=== PATIENT | male | born 1985 | race Two or more races ===

== ENCOUNTER 2017-03-14 17:46 | Emergency (ER) | payer OTHER ==
[~2017-03-14] VITALS: Ht 167.6 cm; Wt 72.6 kg
[2017-03-14] MEDS ORDERED: Tetanus/Diptheria/Pertussis Vaccine 0.5ml Syr IM ONE (18:00)
[2017-03-14] MEDS ORDERED: Bacitracin Oint UD TOPIC ONE (18:00)
[2017-03-14] MEDS ORDERED: Lidocaine 1% Plain 30 ml INJ ONE (18:00)
--- NOTE | 2017-03-14 18:06 | Emergency Room Report ---
History of Present Illness General Chief Complaint: Laceration Source: Patient Present Illness HPI 32-year-old male presents to the emergency department complaining of laceration to the left index finger sustained at work from a sharp piece of metal. Patient states he does not know when his last tetanus vaccination was. Patient states bleeding is minimal at this time denies taking blood thinning medications. He states he is [id number]. Denies numbness tingling or loss of sensation or gross motor movements of the extremities. Denies CP, Palpitations, LOC, AMS, dizziness, Changes in Vision, Sensation, paresthesias, or a sudden severe headache. Allergies: Coded Allergies: No Known Allergies (Unverified , 03/14/17) Patient History Past Medical History: see triage record Past Surgical History: none Pertinent Family History: none Reviewed Nursing Documentation: PMH: Agreed, PSxH: Agreed Nursing Documentation-PMH Past Medical History: No Stated History Review of Systems All Other Systems: negative except mentioned in HPI Physical Exam Vital Signs Date Time Temp Pulse Resp B/P (MAP) Pulse Ox O2 Delivery O2 Flow Rate FiO2 03/14/17 17:50 97.3 61 18 134/82 100 Room Air Sp02 EP Interpretation: reviewed, normal General Appearance: no apparent distress, alert, GCS 15, non-toxic Head: normocephalic, atraumatic Eyes: bilateral eye normal inspection, bilateral eye PERRL ENT: hearing grossly normal, normal voice Neck: full range of motion Respiratory: lungs clear, normal breath sounds, speaking full sentences Cardiovascular #1: regular rate, rhythm, normal capillary refill Musculoskeletal: back normal, gait/station normal, normal range of motion, non- tender Neurologic: alert, oriented x3, responsive, motor strength/tone normal, sensory intact, speech normal Skin: normal color, no rash, warm/dry, well hydrated, laceration - Left Index finger laceration approx 3 cm in length. Procedures Laceration/Wound Repair Laceration/Wound Repair : Consent: Verbal Wound Location: upper extremity - left index finger Wound's Depth, Shape: linear Wound Length (cm): 3 Wound Explored: clean Anesthesia: 1% Lidocaine Volume Anesthetic (ccs): 6 Wound Repaired With: sutures Suture Size/Type: 6:0 Number of Sutures: 4 Layer Closure?: No Sterile Dressing Applied?: Yes Splint Applied?: Yes Type of Splint Applied: Finger splint Sling Applied?: No Patient Tolerated: Well Complications: None Medical Decision Making PA Attestation Dr. Duenas is my supervising Physician whom patient management has been discussed with. Diagnostic Impression: Primary Impression: Laceration ER Course 32-year-old male presents to the emergency department complaining of laceration to the left index finger sustained at work from a sharp piece of metal. Patient states he does not know when his last tetanus vaccination was. Patient states bleeding is minimal at this time denies taking blood thinning medications. He states he is [id number]. Denies numbness tingling or loss of sensation or gross motor movements of the extremities. Denies CP, Palpitations, LOC, AMS, dizziness, Changes in Vision, Sensation, paresthesias, or a sudden severe headache. Ddx considered but are not limited to laceration, tendon injury, cellulitis, amputation Vital signs: are WNL, pt. is afebrile H&PE are most consistent with: Left Index finger laceration approx 3 cm in length ORDERS: none required at this time, the diagnosis is clinical ED INTERVENTIONS: -Tetanus vaccine was administered as pt. vaccination status was unknown. - The wound was copiously irrigated with normal saline, and explored for foreign body for which no FB was found. - pt. is anesthetized with 1%lidocaine in a digital block technique. - The wound was approximated and closed using 4 interrupted 4.0 Prolene sutures. -Bacitracin and sterile dressing is applied. Discussed with patient: That we make every effort to approximate the laceration as best as we can so that scarring will be as cosmetically pleasing as possible with our limited cosmetic skill set in the Emergency dept. Regardless of our best efforts there will be scarring after laceration repair. The extent of scarring is unknown at this time. DISCHARGE: At this time pt. is stable for d/c to home. Will provide printed patient care instructions, and any necessary prescriptions. Care plan and follow up instructions have been discussed with the patient prior to discharge. Last Vital Signs Date Time Temp Pulse Resp B/P (MAP) Pulse Ox O2 Delivery O2 Flow Rate FiO2 03/14/17 17:50 97.3 61 18 134/82 100 Room Air Disposition: HOME, SELF-CARE Condition: Stable Scripts Cephalexin* (KEFLEX*) 500 Mg Capsule 500 MG ORAL EVERY 12 HOURS for 7 Days, #14 CAP 0 Refills Prov: Kelsy Goss 03/14/17 Bacitracin/Polymyxin B Sulfate (BACITRACIN-POLYMYXIN OINTMENT) 28.35 Gm Oint...g. 1 APPLIC TP BID, #28.3 GM Prov: Kelsy Goss 03/14/17 Patient Instructions: Laceration Care, Adult Additional Instructions: Take medications as directed. Keep wound clean and dry. have sutures removed in 7 days. Follow up with a Primary Care Provider in 3-5 days, even if your symptoms have resolved. --Please review list of primary care clinics, if you do not already have a primary care provider Return sooner to ED if new symptoms occur, or current symptoms become worse. - Please note that this Emergency Department Report was dictated using [employer] heater technology software, occasionally this can lead to erroneous entry secondary to interpretation by the dictation equipment. Kelsy Goss Mar 14, 2017 18:06
[2017-03-14 18:07] VITALS: BP 134/82
[2017-03-14] MEDS ORDERED: CEPHALEXIN500 MG ORAL (18:07)
[2017-03-14] MEDS ORDERED: BACITRACIN-P28.35 GM TP (18:07)
[2017-03-14 19:22] VITALS: BP 134/82
== END 2017-03-14 19:26 | disposition home or self-care (01) ==
LOC: EDSEX 17:46 → EMR 18:41
DX: S61.211A Laceration without foreign body of left index finger without damage to nail, initial encounter (principal); W45.8XXA Other foreign body or object entering through skin, initial encounter; W27.8XXA Contact with other nonpowered hand tool, initial encounter; Y92.69 Other specified industrial and construction area as the place of occurrence of the external cause; Y99.0 Civilian activity done for income or pay; Z23 Encounter for immunization
CPT/HCPCS: 12002; 90471; 90715; 99283; J2001

== ENCOUNTER 2017-03-21 16:04 | Emergency (ER) | payer OTHER ==
[~2017-03-21] VITALS: Ht 175.3 cm; Wt 79.4 kg
[~2017-03-21 16:04] MED LIST: BACITRACIN-P28.35 GM TP; CEPHALEXIN500 MG ORAL
--- NOTE | 2017-03-21 16:27 | Emergency Room Report ---
History of Present Illness General Chief Complaint: Wound Recheck/Suture Removal Source: Patient Present Illness HPI 32-year-old male presents to the emergency department for removal of sutures that were placed in the left index finger approximately 7 days ago. Patient denies erythema, tenderness, pain, discharge about the wound. Allergies: Coded Allergies: No Known Allergies (Unverified , 03/14/17) Patient History Past Medical History: see triage record Past Surgical History: none Pertinent Family History: none Immunizations: UTD Reviewed Nursing Documentation: PMH: Agreed, PSxH: Agreed Nursing Documentation-PMH Past Medical History: No Stated History Review of Systems All Other Systems: negative except mentioned in HPI Physical Exam Vital Signs Date Time Temp Pulse Resp B/P (MAP) Pulse Ox O2 Delivery O2 Flow Rate FiO2 03/21/17 16:09 98.1 72 18 131/74 98 Room Air Sp02 EP Interpretation: reviewed, normal General Appearance: normal inspection, well appearing, no apparent distress, alert, GCS 15, non-toxic Respiratory: lungs clear, speaking full sentences Cardiovascular #1: regular rate, rhythm, normal capillary refill Musculoskeletal: normal inspection, digits/nails normal, normal range of motion , non-tender Neurologic: sensory intact Skin: normal color, warm/dry, wd healing/no infection noted - [address] to the left index finger Medical Decision Making PA Attestation Dr. Zimmerman is my supervising Physician whom patient management has been discussed with. Diagnostic Impression: Primary Impression: Encounter for removal of sutures ER Course 32-year-old male presents to the emergency department for removal of sutures that were placed in the left index finger approximately 7 days ago. Patient denies erythema, tenderness, pain, discharge about the wound. Ddx considered but are not limited to laceration, tendon injury, cellulitis, dehiscence. Vital signs: are WNL, pt. is afebrile H&PE are most consistent with: healed laceration of the Left index finger ORDERS: none required at this time, the diagnosis is clinical ED INTERVENTIONS: - 5 Sutures removed. DISCHARGE: At this time pt. is stable for d/c to home. Will provide printed patient care instructions, and any necessary prescriptions. Care plan and follow up instructions have been discussed with the patient prior to discharge. Last Vital Signs Date Time Temp Pulse Resp B/P (MAP) Pulse Ox O2 Delivery O2 Flow Rate FiO2 03/21/17 16:09 98.1 72 18 131/74 98 Room Air Disposition: HOME, SELF-CARE Condition: Stable Patient Instructions: Suture Removal, Care After Additional Instructions: Take medications as directed. Follow up with a Primary Care Provider in 3-5 days, even if your symptoms have resolved. --Please review list of primary care clinics, if you do not already have a primary care provider Return sooner to ED if new symptoms occur, or current symptoms become worse. - Please note that this Emergency Department Report was dictated using [employer] or packer and weigher technology software, occasionally this can lead to erroneous entry secondary to interpretation by the dictation equipment. Kelsy Goss Mar 21, 2017 16:27
[2017-03-21 16:35] VITALS: BP 126/85
[2017-03-21 16:55] VITALS: BP 128/75
== END 2017-03-21 16:55 | disposition home or self-care (01) ==
LOC: EMR 16:55
DX: Z48.02 Encounter for removal of sutures (principal)
CPT/HCPCS: 99281